=== PATIENT | female | born 1995 | race Hispanic/Latino ===

== ENCOUNTER 2019-02-14 22:14 | Emergency (ER) | payer OTHER, SELFPAY ==
[2019-02-14] MEDS ORDERED: Acetaminophen 500 MG TAB ONE (22:36)
== END 2019-02-14 22:55 | disposition home or self-care (01) ==
LOC: ERS 22:14
DX: B34.9 Viral infection, unspecified (principal); R51 Headache
CPT/HCPCS: 99283